=== PATIENT | female | born 1950 | race Two or more races ===

== ENCOUNTER → 2018-02-04 | Outpatient (REF) | payer BC, MEDICARE ==
[2018-02-10 14:50] LABS: ALDOS/RENIN RATIO >15.0 (0.0-30.0); ALDOSTERONE 2.5 ng/dL (0.0-30.0); RENIN ACTIVITY <0.167 ng/mL/hr (0.167-5.380)
== END ==
LOC: M LAB REF 16:47
DX: I15.0 Renovascular hypertension (principal)
CPT/HCPCS: 84244

== ENCOUNTER → 2018-02-14 | Outpatient (CLI) | payer MEDICARE, BC | LOC: M RAD 07:43 | DX: N18.2 Chronic kidney disease, stage 2 (mild) (principal); I15.0 Renovascular hypertension; Z87.442 Personal history of urinary calculi | CPT/HCPCS: 76775 ==

== ENCOUNTER → 2018-03-07 | Outpatient (REF) | payer MEDICARE ==
[2018-03-08 13:55] LABS: CHLORIDE,RANDOM URINE 209 MEQ/L; SODIUM,RANDOM URINE 173 MEQ/L
== END ==
LOC: M LAB REF 12:58
DX: I15.0 Renovascular hypertension (principal)
CPT/HCPCS: 82436

== ENCOUNTER → 2020-10-08 | Outpatient (REF) | payer MEDICARE | LOC: M LAB REF 17:19 | PROVIDERS: ATTEND Internal Medicine Nephrology | DX: N25.9 Disorder resulting from impaired renal tubular function, unspecified (principal) ==

== ENCOUNTER → 2021-04-14 | Outpatient (REF) | payer MEDICARE | LOC: M LAB REF 13:14 | PROVIDERS: ATTEND Internal Medicine Nephrology | DX: N18.31 Chronic kidney disease, stage 3a (principal) ==

== ENCOUNTER → 2022-04-07 | Outpatient (REF) | payer MEDICARE ==
[2022-04-07 18:38] LABS: TOTAL PROTEIN,RANDOM URINE 7.5 MG/DL (0.0-14.0)
[2022-04-07 18:43] LABS: CREATININE,RANDOM URINE 86.8 MG/DL
[2022-04-07 20:07] LABS: BACTERIA, URINE MOD AMOUNT; SQUAMOUS EPITHELIAL CELL URINE SMALL AMOUNT /hpf (SMALL AMT)
[2022-04-07 20:08] LABS: MUCUS, URINE SMALL AMOUNT (NEGATIVE)
== END ==
LOC: M LAB REF 16:47
PROVIDERS: ATTEND Internal Medicine Nephrology
DX: R80.9 Proteinuria, unspecified (principal); R82.81 Pyuria